=== PATIENT | female | born 1990 | race Caucasian/White ===

== ENCOUNTER 2018-05-13 17:14 | Emergency (ER) | payer OTHER ==
[2018-05-13 18:19] VITALS: BP 110/69
--- NOTE | 2018-05-13 18:35 | UC ---
Bite Injury/Animal HPI - HPI Summary HPI Summary: This is bro Guzman documenting for attending Serg Flood MD. This patient is a 28 year old F presenting to [facility] with a chief complaint of bee stings on 05/11/2018. She was stung by a bee 4 different times on L index finger, head twice, and fourth finger. All stings were normal except the sting on her L index finger which has swelled up. She has taken Benadryl which has not alleviated the symptoms. The patient is unaware of any allergies. She would not have come into , but she had a TB test read by the halfway nurse today who noted the swollen finger and advised her to come to . - History of Current Complaint Chief Complaint: [place] Stated Complaint: BEE STING Time Seen by Provider: 05/13/18 18:27 Hx Obtained From: Patient Hx Last Menstrual Period: now Severity Currently: None Pain Intensity: 0 Pain Scale Used: 0-10 Numeric Onset/Duration: Sudden Onset Type of Bite: Wild Animal - Bee sting Character: Puncture Aggravating Factor(s): Nothing Alleviating Factor(s): Nothing Associated Signs And Symptoms: Positive: Swelling - on L index finger - Allergies/Home Medications Allergies/Adverse Reactions: Allergies Allergy/AdvReac Type Severity Reaction Status Date / Time No Known Allergies Allergy Verified 05/13/18 18:19 PMH/Surg Hx/FS Hx/Imm Hx Endocrine History: Diabetes - Denies diabetes Cardiovascular History: Cardiac Disease - Denies CAD - Surgical History Surgical History: Yes Surgery Procedure, Year, and Place: Eye - Family History Known Family History: Negative: Diabetes - Social History Occupation: Employed Full-time Lives: With Family Alcohol Use: Rare Substance Use Type: None Smoking Status (MU): Never Smoked Tobacco Review of Systems Constitutional: Fever - Denies fever Skin: Other - Edema on L index finger All Other Systems Reviewed And Are Negative: Yes Physical Exam - Summary Physical Exam Summary: General: well-appearing, no pain distress Skin: warm, color reflects adequate perfusion, dry Head: normal Eyes: EOMI, SHAWN ENT: normal Neck: supple, nontender Respiratory: CTA, breath sounds present Cardiovascular: RRR Abdomen: soft, nontender Bowel: present Musculoskeletal: L index finger is swollen. Decreased flexion and tension. Minimal erythema and streaking. Neurological: sensory/motor intact, A&O x3 Psychological: affect/mood appropriate Triage Information Reviewed: Yes Vital Signs: Initial Vital Signs Temp 98.7 F 05/13/18 18:17 Pulse 75 05/13/18 18:17 Resp 12 05/13/18 18:17 BP 110/69 05/13/18 18:17 Pulse Ox 100 05/13/18 18:17 Bite Injury Course/Dx - Differential Dx/Diagnosis Provider Diagnoses: LOCALIZED REACTION TO BEE STING LEFT INDEX FINGER Discharge - Sign-Out/Discharge Documenting (check all that apply): Patient Departure - Discharge Plan Condition: Stable Disposition: HOME Prescriptions: Cephalexin CAP* [Keflex CAP*] 500 mg PO TID #21 cap predniSONE TAB* [Deltasone 20 MG TAB*] 40 mg PO DAILY #6 tab Patient Education Materials: Insect Bite or Sting (ED) Forms: *Work Release Referrals: [facility] [Outside] No Primary Care Phys,NOPCP [Primary Care Provider] - Additional Instructions: FOLLOW UP WITH YOUR DOCTOR IF NOT COMPLETELY IMPROVED. GET RECHECKED FOR ANY WORSENING OF YOUR CONDITION; SPREAD OF REDNESS, YOU FEEL ILL OR QUESTIONS OR CONCERNS. - Billing Disposition and Condition Condition: STABLE Disposition: Home
== END 2018-05-13 18:42 | disposition home or self-care (01) ==
LOC: UCEAST 17:14
DX: T63.441A Toxic effect of venom of bees, accidental (unintentional), initial encounter (principal); M79.89 Other specified soft tissue disorders; Y92.9 Unspecified place or not applicable
CPT/HCPCS: 99212; G0463

== ENCOUNTER 2018-05-26 20:07 | Emergency (ER) | payer OTHER ==
[2018-05-26 20:31] VITALS: BP 105/64
--- NOTE | 2018-05-26 21:05 | UC ---
Headache HPI - HPI Summary HPI Summary: Was on antibiotics for cellulitis 2 weeks ago. C/O yeast infection with white coating on the tongue. C/O sinus infection with headache chills and fevers. - History Of Current Complaint Chief Complaint: UCGeneralIllness Stated Complaint: HEADACHE/HOT/COLD SWEATS Time Seen by Provider: 05/26/18 20:57 Hx Obtained From: Patient Hx Last Menstrual Period: 05/11/18 ?: No Onset/Duration: Gradual Onset, Lasting Days - 2, Still Present Onset Of Symptoms: Gradual Pain Intensity: 7 Character: Pressure - sinus Location of Headache: Frontal Allevating Factor(s): Position Change - bending over. Associated Signs And Symptoms: Positive: Sinus Pressure - Allergies/Home Medications Allergies/Adverse Reactions: Allergies Allergy/AdvReac Type Severity Reaction Status Date / Time No Known Allergies Allergy Verified 05/13/18 18:19 Home Medications: Home Medications Naproxen Sodium [Aleve] 220 mg PO Q8H 05/26/18 [History Confirmed 05/26/18] PMH/Surg Hx/FS Hx/Imm Hx Respiratory History: Asthma - Surgical History Surgical History: Yes Surgery Procedure, Year, and Place: LAS[facility] Eye - Family History Known Family History: Positive: Cardiac Disease, Hypertension Negative: Diabetes - Social History Occupation: Employed Full-time Lives: Alone Alcohol Use: Rare Substance Use Type: None Smoking Status (MU): Never Smoked Tobacco Have You Smoked in the Last Year: No Review of Systems Constitutional: Fever, Chills, Fatigue ENT: Sinus Pain/Tenderness Neurological: Headache Is Patient Immunocompromised?: No All Other Systems Reviewed And Are Negative: Yes Physical Exam Triage Information Reviewed: Yes Appearance: Well-Nourished, Ill-Appearing, Pain Distress - with head movement Vital Signs: Initial Vital Signs Temp 98.1 F 05/26/18 20:23 Pulse 96 05/26/18 20:23 Resp 16 05/26/18 20:23 BP 105/64 05/26/18 20:23 Pulse Ox 100 05/26/18 20:23 Eyes: Positive: Conjunctiva Inflamed ENT: Positive: Pharynx normal, Nasal congestion, TMs normal, Sinus tenderness - frontal Neck exam: Normal Respiratory Exam: Normal Cardiovascular Exam: Normal Musculoskeletal Exam: Normal Neurological Exam: Normal Psychological Exam: Normal Skin Exam: Normal Headache Course/Dx - Differential Dx/Diagnosis Differential Diagnosis/HQI/PQRI: Sinus Headache, Tension Headache, Viral Syndrome Provider Diagnoses: Acute sinusitis. Allergic rhinitis Discharge - Sign-Out/Discharge Documenting (check all that apply): Patient Departure - Discharge Plan Condition: Stable Disposition: HOME Prescriptions: Amoxicillin PO (*) [Amoxicillin 875 MG (*)] 875 mg PO BID #20 tab Fluconazole [Fluconazole 150 mg tab] 150 mg PO ONCE #1 tablet Patient Education Materials: Sinusitis (ED), Allergic Rhinitis (ED), Amoxicillin (By mouth) Referrals: Jad Latham MD [Primary Care Provider] - Additional Instructions: NEILMED SINUS RINSE: CHECK OUT AT [facility] Saline nasal wash helps with mucous, allergies and congestion. It can be used up to twice a day or only as needed. Use lukewarm tap water. It does not have to be sterilized or distilled water. Do 1/3 on each side and snort out of both nostrils. Repeat the process with 1/6 of the bottle on each side with snorting in between to finish the solution in the bottle - Billing Disposition and Condition Condition: STABLE Disposition: Home
[2018-05-26] MEDS ORDERED: Amoxicillin PO (*) 500 MG CAP PO ONE (21:09)
== END 2018-05-26 21:19 | disposition home or self-care (01) ==
LOC: UCCORT 20:07
DX: J01.90 Acute sinusitis, unspecified (principal); J30.9 Allergic rhinitis, unspecified
CPT/HCPCS: 99212; A9270-GY; G0463

== ENCOUNTER 2018-10-31 13:12 | Emergency (ER) | payer BC, OTHER ==
[2018-10-31 14:31] VITALS: BP 130/74
--- NOTE | 2018-10-31 14:38 | UC ---
Respiratory Complaint HPI - HPI Summary HPI Summary: sore throat since september and had a few wks of no symptoms. sore throat started again 2 wks. ago w/ no fever. she works at [employer] so she thinks someone may have gotten her sick. - History of Current Complaint Chief Complaint: UCGeneralIllness Stated Complaint: SORE THROAT Time Seen by Provider: 10/31/18 14:22 Hx Obtained From: Patient Hx Last Menstrual Period: ~10/27/18 Pain Intensity: 5 Pain Scale Used: 0-10 Numeric - Allergies/Home Medications Allergies/Adverse Reactions: Allergies Allergy/AdvReac Type Severity Reaction Status Date / Time No Known Allergies Allergy Verified 10/31/18 14:28 Home Medications: Home Medications Norgestimate-Ethinyl Estradiol [Tri-Sprintec 0.18/0.215/0.25 mg-35 Mcg] 1 tab PO DAILY 10/31/18 [History Confirmed 10/31/18] PMH/Surg Hx/FS Hx/Imm Hx Previously Healthy: Yes - Surgical History Surgical History: Yes Surgery Procedure, Year, and Place: [facility] - Family History Known Family History: Positive: Cardiac Disease, Hypertension Negative: Diabetes - Social History Alcohol Use: Rare Substance Use Type: None Smoking Status (MU): Never Smoked Tobacco Have You Smoked in the Last Year: No Review of Systems All Other Systems Reviewed And Are Negative: Yes Constitutional: Negative: Fever, Chills Skin: Negative: Rash Respiratory: Positive: Negative Cardiovascular: Positive: Negative Physical Exam Triage Information Reviewed: Yes Appearance: Well-Appearing Vital Signs: Initial Vital Signs Temp 97.4 F 10/31/18 14:25 Pulse 84 10/31/18 14:25 Resp 16 10/31/18 14:25 BP 130/74 10/31/18 14:25 Pulse Ox 99 10/31/18 14:25 Vital Signs Reviewed: Yes ENT: Positive: Pharyngeal erythema - w/ few papules but no vesicles noted., TMs normal, Other. Negative: Tonsillar swelling, Tonsillar exudate Respiratory Exam: Normal Cardiovascular Exam: Normal Skin: Negative: Rashes UC Diagnostic Evaluation - Laboratory O2 Sat by Pulse Oximetry: 99 Respiratory Course/Dx - Course Course Of Treatment: Viral pharyngitis, rapid strep neg. vitals good. Will r/ o mono and comfort measures for symptoms. - Differential Dx/Diagnosis Differential Diagnosis/HQI/PQRI: Laryngitis Provider Diagnosis: Viral pharyngitis Discharge - Sign-Out/Discharge Documenting (check all that apply): Patient Departure All imaging exams completed and their final reports reviewed: No Studies - Discharge Plan Condition: Good Disposition: HOME Patient Education Materials: Pharyngitis (ED) Forms: *Work Release Referrals: No Primary Care Phys,NOPCP [Primary Care Provider] - Additional Instructions: You have a viral infection causing your sore throat. You do not have strep which is good. I am checking to see if you have [place] which we we know in a day or so. - Billing Disposition and Condition Condition: GOOD Disposition: Home
[2018-10-31 18:29] LABS: ABS Basophils 0.1 10^3/ul (0-0.2); ABS Eosinophils 0.2 10^3/ul (0-0.6); ABS Lymphocytes 2.5 10^3/ul (1.0-4.8); ABS Monocytes 0.4 10^3/ul (0-0.8); ABS Neutrophils 4.4 10^3/ul (1.5-7.7); ABS Nucleated RBC 0 10^3/ul; Eosinophil % 2.6 %; Hematocrit 40 % (35-47); Hemoglobin 13.4 g/dl (12.0-16.0); Lymphocyte % 32.8 %; Mean Corpuscular HGB Conc 33 g/dl (31-36); Mean Corpuscular Hemoglobin 31 pg (27-31); Mean Corpuscular Volume 93 fL (80-97); Mean Platelet Volume 8.6 fL (7.4-10.4); Nucleated Red Blood Cells % 0.1; Platelet Count 165 10^3/ul (150-450); Red Blood Count 4.33 10^6/ul (4.00-5.40); Red Cell Distribution Width 13 % (10.5-15); White Blood Count 7.6 10^3/ul (3.5-10.8)
[2018-11-02 15:43] LABS: EBV Capsid Ag IgG Ab Positive (Negative); EBV Capsid Ag IgM Ab Equivocal (Negative); Epstein-Barr Nuclear Antigen Positive (Negative)
== END 2018-10-31 15:11 | disposition home or self-care (01) ==
LOC: UCCORT 13:12
DX: J02.8 Acute pharyngitis due to other specified organisms (principal)
CPT/HCPCS: 36415; 85025; 86308; 86664; 86665; 87070; 87651; 99211; G0463

== ENCOUNTER 2022-07-03 19:03 | Inpatient (IN) ==
[2022-07-03] MEDS ORDERED: Penicillin G Potassium IV 5,000,000 UNITS in NS 0.9% 100 ml BAG 100 ML IVPB ONE (19:58)
[2022-07-03] MEDS ORDERED: Lactated Ringers 1000 ml BAG 1,000 ML IV ONE (19:58)
[2022-07-03 20:25] LABS: ABS Basophils 0.1 10^3/ul (0-0.2); ABS Eosinophils 0.1 10^3/ul (0-0.6); ABS Lymphocytes 2.3 10^3/ul (1.0-4.8); ABS Neutrophils 9.7 10^3/ul (1.5-7.7); Eosinophil % 0.7 %; Hematocrit 34 % (35-47); Hemoglobin 11.1 g/dL (12.0-16.0); Lymphocyte % 17.8 %; Mean Corpuscular HGB Conc 33 g/dL (31-36); Mean Corpuscular Hemoglobin 30 pg (27-31); Mean Corpuscular Volume 93 fL (80-97); Mean Platelet Volume 8.9 fL (7.4-10.4); Nucleated Red Blood Cells % 0.1; Platelet Count 149 10^3/uL (150-450); Red Blood Count 3.65 10^6 /uL (3.70-4.87); Red Cell Distribution Width 16 % (10-15); White Blood Count 13.2 10^3/uL (3.5-10.8)
[2022-07-03 20:48] LABS: Urine Benzodiazepine Screen None Detected (None Detect); Urine Cannabinoids Screen None Detected (None Detect); Urine Opiates Screen None Detected (None Detect)
[2022-07-04] MEDS ORDERED: Lactated Ringers 1000 ml BAG 1,000 ML IV ONE (00:05)
[2022-07-04] MEDS ORDERED: Phenylephrine 40 mcg/mL 10mL (400mcg) SYRINGE IV PUSH PRN ×2 (00:05)
[2022-07-04] MEDS ORDERED: Sodium Citrate/Citric Acid LIQ 15 ML UDC PO PRN (00:05)
[2022-07-04] MEDS ORDERED: OBEPIDURAL (200 ML) 200 ML EPIDURAL ONE (00:13)
[2022-07-04] MEDS ORDERED: OBEPIDURAL (200 ML) 200 ML EPIDURAL SCH (01:00)
[2022-07-04] MEDS: Penicillin G Potassium IV 3,000,000 UNITS in NS 0.9% 100 ml BAG 100 ML IVPB SCH (01:26)
[2022-07-04] MEDS: Lactated Ringers 1000 ml BAG 1,000 ML IV SCH ×3 (03:23→05:14)
[2022-07-04] MEDS ORDERED: Oxytocin in LR 20,000 MILLI.UNIT/1,000 ML BAG IV SCH ×2 (03:30→07:00)
[2022-07-04] MEDS ORDERED: Witch Hazel PAD JAR TOPICAL PRN (06:46)
[2022-07-04] MEDS ORDERED: Oxytocin 10 UNITS/ML 1 ML VIAL IM ONE (06:46)
[2022-07-04] MEDS ORDERED: Dibucaine 1% OINT 28.35 GM TUBE PR PRN (06:46)
[2022-07-04] MEDS ORDERED: Lactated Ringers 1000 ml BAG 1,000 ML IV SCH (07:00)
[2022-07-04] MEDS ORDERED: Lidocaine 1% VIAL 10 MG/ML VIAL ONE (13:01)
[2022-07-05] MEDS: Penicillin G Potassium IV 3,000,000 UNITS in NS 0.9% 100 ml BAG 100 ML IVPB SCH (05:37)
[2022-07-05 06:24] LABS: ABS Eosinophils 0.1 10^3/ul (0-0.6); ABS Lymphocytes 2.4 10^3/ul (1.0-4.8); ABS Monocytes 0.9 10^3/ul (0-0.8); ABS Neutrophils 8.9 10^3/ul (1.5-7.7); Eosinophil % 1.2 %; Hematocrit 32 % (35-47); Hemoglobin 10.2 g/dL (12.0-16.0); Lymphocyte % 19.2 %; Mean Corpuscular HGB Conc 32 g/dL (31-36); Mean Corpuscular Hemoglobin 30 pg (27-31); Mean Corpuscular Volume 94 fL (80-97); Mean Platelet Volume 8.2 fL (7.4-10.4); Nucleated Red Blood Cells % 0.1; Platelet Count 129 10^3/uL (150-450); Red Blood Count 3.38 10^6 /uL (3.70-4.87); Red Cell Distribution Width 16 % (10-15); White Blood Count 12.3 10^3/uL (3.5-10.8)
[2022-07-06 08:52] VITALS: BP 116/70
== END 2022-07-06 14:56 | disposition home or self-care (01) | DRG 560 ==
LOC: MCHOBOUT 19:03 → MCHOB 19:53
PROVIDERS: ADMIT Midwife; ATTEND Midwife